=== PATIENT | male | born 1995 | race Hispanic/Latino ===

== ENCOUNTER → 2020-03-16 | Day surgery (SDC) | payer OTHER ==
[~2020-03-16] MED LIST: ALLERGY MEDICIN25 M1 PO; B&O 60MG R/S 60 MG SUPP PR ONE; DEXAMETHASONE SOD PHOS INJ 4 MG/ML VIAL ONE; FENTANYL CITRATE/PF 100MCG/2 ML INJ ONE; GENTAMICIN 80MG/NS 100 ML 200 ML IV ONE; IOPAMIDOL 300MG/ML 50ML INFUS..BTL IV ONE; IOTHALAMATE MEGLUMINE 17.20% 250 ML BTL ONE; LIDOCAINE HCL 2% LOCAL INJ 5 ML SDV VIAL INJ ONE; MIDAZOLAM HCL 2 MG/2 ML VIAL ONE; ONDANSETRON HCL INJ 2MG/ML 2ML 2 MG/ML VIAL ONE; PROPOFOL IV EMULSION 10 MG/ML 20 ML VIAL ONE; SEVOFLURANE INHAL SOLN 250 ML PEN BTL ONE
[2020-03-16 09:20] VITALS: BP 118/81
== END | disposition home or self-care (01) ==
LOC: OR 06:06
PROVIDERS: ATTEND Urology
DX: N39.0 Urinary tract infection, site not specified (principal); R80.9 Proteinuria, unspecified; R35.1 Nocturia; Q55.22 Retractile testis; N47.1 Phimosis; E66.9 Obesity, unspecified; Z01.812 Encounter for preprocedural laboratory examination; Z11.59 Encounter for screening for other viral diseases; Z68.34 Body mass index [BMI] 34.0-34.9, adult
CPT/HCPCS: 52005; 74420; 78740; C1758; J1100; J1580; J2001; J2250; J2405; J2704; J3010; Q9958; Q9967; U0002